=== PATIENT | male | born 1970 | race Caucasian/White ===

== ENCOUNTER 2017-01-28 21:17 | Emergency (ER) | payer BC ==
[~2017-01-28] VITALS: Ht 172.7 cm; Wt 74.3 kg
[2017-01-28 21:21] VITALS: TEMP 36.4; Ht 172.7 cm; Wt 74.3 kg
[2017-01-28] MEDS ORDERED: PROCHLORPERAZINE 5 MG/ML 2 ML VIAL IV STA (21:31)
[2017-01-28] MEDS ORDERED: KETOROLAC TROMETHAMINE 30 MG/ML VIAL IV STA (21:31)
[2017-01-28] MEDS ORDERED: SODIUM CHLORIDE 0.9% 1000ML 1,000 ML IV STA (21:31)
[2017-01-28] MEDS ORDERED: DiphenhydrAMINE HCL 50 MG/ML VIAL IV STA (21:31)
--- NOTE | 2017-01-28 21:39 | EMERGENCY ROOM VISIT NOTE ---
History Report prepared by Emani: Janet Quintanilla Under the Supervision of: Dr. Nabil Montes M.D. First contact with patient: 21:23 Chief Complaint: HEADACHE Stated Complaint: MIGRAINE SINCE MON,SORE NECK History of Present Illness The patient is a 46 year old male who presents to the Emergency Room with complaints of a constant headache beginning 5 days ago. The patient states that he woke up with this headache 5 days ago and feels like it might have come on suddenly. He reports that the pain is in the back of his head where his neck and head meet. He denies any neck pain, fever, runny nose, and sinus pressure. He notes that he has never had a headache like this before. The patient notes a history of broken back, displaced vertebrae in his neck, and 12 concussions. He states that he did hit his head on a trailer the morning before his headache began. He reports that bending over and looking down worsens his pain. The patient notes that he did not see a chiropractor or have manipulation prior to his headache but yesterday he went and did not have any relief of his symptoms. Source of History: patient Onset: 5 days ago Position: head Timing: constant Modifying Factors (Worsening): other (bending over) Modifying Factors (Relieving): other (none) Associated Symptoms: No fevers, No neck pain Note: Denies runny nose and sinus pressure. Review of Systems See HPI for pertinent positives & negatives. A total of 10 systems reviewed and were otherwise negative. Past Medical & Surgical Medical Problems: (1) Concussion Family History No pertinent family history stated. Social History Smoking Status: Never Smoker Smokeless Tobacco Use: Yes Alcohol Use: occasionally Marital Status: in relationship Housing Status: lives with significant other Occupation Status: employed Current/Historical Medications No Active Prescriptions or Reported Meds Allergies Coded Allergies: Acetaminophen (Verified Adverse Reaction, Unknown, ANXIETY (TYLENOL W/COD ), 01/28/17) Codeine (Verified Adverse Reaction, Unknown, ANXIETY, 01/28/17) Physical Exam Vital Signs Date Time Temp Pulse Resp B/P (MAP) Pulse Ox O2 Delivery O2 Flow Rate FiO2 01/28/17 23:06 76 18 135/84 98 Room Air 01/28/17 21:21 36.4 75 18 142/91 96 Room Air Physical Exam GENERAL: Patient is a healthy-appearing well-nourished [] HEAD: Normocephalic atraumatic EYES: Ocular movements intact pupils equal and react to light OROPHARYNX mucous membranes are moist no exudates present no erythema or edema present NECK: Supple no nuchal rigidity CHEST: Good equal expansion LUNGS: Clear and equal to auscultation CARDIAC: Normal S1 and S2 ABDOMEN: Soft nontender no guarding BACK: No CVA tenderness EXTREMITIES: No pain upon palpation normal muscle strength in all groups no clubbing cyanosis or edema NEURO: Patient is following commands and answering questions appropriately. Alert and oriented x3 Cranial Nerves 2-12 grossly intact, no evidence of meningitis or encephalitis on exam Medical Decision & Procedures ER Provider Diagnostic Interpretation: CT results as stated below per my review and radiologist interpretation: CT ANGIOGRAM OF THE BRAIN COMBO; CT ANGIOGRAM OF THE NECK FINDINGS: Brain parenchyma: The brain parenchyma is normal in appearance. There is no hemorrhage, mass effect, or evidence of acute territorial ischemia by CT criteria. There is no evidence of enhancing mass lesion on the angiogram phase images. The ventricles, sulci, and cisterns are normal in configuration. Megacisterna magna is incidentally noted. Yuan-white matter differentiation is preserved. No extra-axial fluid collection is seen. Thoracic aorta: Visualized portions of the thoracic aorta are normal in caliber. The aortic arch demonstrates standard 3-vessel anatomy. Right carotid arterial system: The right common carotid artery is widely patent, as are the right internal and external carotid arteries. Left carotid arterial system: The left common carotid artery is widely patent, as are the left internal and external carotid arteries. Vertebral arteries: Widely patent bilaterally and codominant. Subclavian arteries: Widely patent bilaterally. Intracranial vasculature: A left posterior communicating artery is identified. The internal carotid arteries are patent at the skull base, as are the anterior and middle cerebral arteries bilaterally. The vertebrobasilar system and posterior cerebral arteries are widely patent. The left vertebral artery is dominant at the skull base. There is no aneurysm, high-grade stenosis, or focal vessel cut off seen throughout the intracranial circulation. Jugular veins: Widely patent bilaterally. Dural sinuses: Patent. Lung apices: Partially visualized upper lobe lung parenchyma appears clear. Soft tissues: The visualized pharyngeal soft tissues are normal in appearance noting angiographic phase technique. The oropharyngeal airway appears widely patent. The salivary and thyroid glands are normal in appearance. No cervical lymphadenopathy is seen. Skeletal structures: The calvarium appears intact. The cervical spine is within normal limits. Sinuses and mastoids: Minimal secretions are seen within the right sphenoid sinus. Trace mucosal thickening is also seen within the maxillary antra. The remaining paranasal sinuses are clear. The mastoid air cells are well pneumatized. IMPRESSION: 1. No acute intracranial abnormality. 2. Unremarkable CT angiogram of the brain. 3. Unremarkable CT angiogram of the neck. Electronically signed by: Darian Law M.D. 01/28/2017 10:33 PM Dictated Date/Time: 01/28/2017 10:26 PM Laboratory Results 01/28/17 21:40 Red Blood Count 4.82, Mean Corpuscular Volume 89.2, Mean Corpuscular Hemoglobin 32.0, Mean Corpuscular Hemoglobin Concent 35.8, Mean Platelet Volume 11.5, Neutrophils (%) (Auto) 45.8, Lymphocytes (%) (Auto) 37.5, Monocytes (%) (Auto) 10.3, Eosinophils (%) (Auto) 6.0, Basophils (%) (Auto) 0.2, Neutrophils # (Auto ) 2.46, Lymphocytes # (Auto) 2.01, Monocytes # (Auto) 0.55, Eosinophils # (Auto ) 0.32, Basophils # (Auto) 0.01 01/28/17 21:40 Test 01/28/17 21:40 01/28/17 21:50 White Blood Count 5.36 K/uL (4.8-10.8) Red Blood Count 4.82 M/uL (4.7-6.1) Hemoglobin 15.4 g/dL (14.0-18.0) Hematocrit 43.0 % (42-52) Mean Corpuscular Volume 89.2 fL (80-100) Mean Corpuscular Hemoglobin 32.0 pg (25-34) Mean Corpuscular Hemoglobin Concent 35.8 g/dl (32-36) Platelet Count 172 K/uL (130-400) Mean Platelet Volume 11.5 fL (7.4-10.4) Neutrophils (%) (Auto) 45.8 % Lymphocytes (%) (Auto) 37.5 % Monocytes (%) (Auto) 10.3 % Eosinophils (%) (Auto) 6.0 % Basophils (%) (Auto) 0.2 % Neutrophils # (Auto) 2.46 K/uL (1.4-6.5) Lymphocytes # (Auto) 2.01 K/uL (1.2-3.4) Monocytes # (Auto) 0.55 K/uL (0.11-0.59) Eosinophils # (Auto) 0.32 K/uL (0-0.5) Basophils # (Auto) 0.01 K/uL (0-0.2) RDW Standard Deviation 40.9 fL (36.4-46.3) RDW Coefficient of Variation 12.7 % (11.5-14.5) Immature Granulocyte % (Auto) 0.2 % Immature Granulocyte # (Auto) 0.01 K/uL (0.00-0.02) Est Creatinine Clear Calc Drug Dose 60.2 ml/min Estimated GFR () 64.2 Estimated GFR (Non- 55.4 BUN/Creatinine Ratio 10.1 (10-20) Calcium Level 9.1 mg/dl (8.5-10.1) Total Bilirubin 0.4 mg/dl (0.2-1) Direct Bilirubin < 0.1 mg/dl (0-0.2) Aspartate Amino Transf (AST/SGOT) 19 U/L (15-37) Alanine Aminotransferase (ALT/SGPT) 45 U/L (12-78) Alkaline Phosphatase 83 U/L (45-117) Total Protein 7.0 gm/dl (6.4-8.2) Albumin 3.6 gm/dl (3.4-5.0) Lipase 194 U/L (73-393) Lyme Disease IgG Antibody NEG (NEG) Lyme Disease IgM Antibody NEG (NEG) Bedside Hemoglobin 15.0 g/dl (14.0-18.0) Bedside Hematocrit 44 % (42-52) Bedside Sodium 142 mEq/L (135-144) Bedside Potassium 3.9 mEq/L (3.3-5.0) Bedside Chloride 105 mEq/L (101-112) Bedside Total CO2 26 mEq/l (24-31) Anion Gap 17.0 mmol/L (16-25) Bedside Blood Urea Nitrogen 16 mg/dl (7-18) Bedside Creatinine 1.4 mg/dl (0.6-1.3) Bedside Glucose (other) 106 mg/dl (70-99) Bedside Ionized Calcium (Jeevan) 1.24 mmol/l (1.12-1.32) Labs reviewed by ED physician. Medications Administered Medications (Trade) Dose Ordered Sig/Casimiro Route Start Time Stop Time Status Last Admin Dose Admin Ketorolac Tromethamine (Toradol Inj) 30 mg NOW STAT IV 01/28/17 21:31 01/28/17 21:34 DC 01/28/17 21:49 30 MG Prochlorperazine Edisylate (Compazine Inj) 10 mg NOW STAT IV 01/28/17 21:31 01/28/17 21:34 DC 01/28/17 21:49 10 MG Diphenhydramine HCl (Benadryl Inj) 50 mg NOW STAT IV 01/28/17 21:31 01/28/17 21:34 DC 01/28/17 21:49 50 MG Sodium Chloride 1,000 ml @ 999 mls/hr Q1H1M STAT IV 01/28/17 21:31 01/28/17 22:31 DC 01/28/17 21:31 999 MLS/HR Dexamethasone Sodium Phosphate (Decadron Inj) 10 mg NOW ONCE IV 01/28/17 23:00 01/28/17 23:01 DC 01/28/17 23:05 10 MG ED Course 3: Past medical records reviewed. The patient was evaluated in room A3. A complete history and physical examination was performed. 2131: Sodium Chloride 1000 ml @ 999 mls/hr IV, Benadryl Inj 50mg IV, Compazine Inj 10mg IV, Toradol Inj 30mg IV. 2300: Decadron Inj 10mg IV. 2312: Upon reexamination the patient is doing well. I discussed results and treatment plan with the patient. He verbalizes agreement and understanding. The patient is ready for discharge. Medical Decision Differential diagnosis: Etiologies such as migraine headache, meningitis, sinusitis, CO exposure, ICH, SAH, infection, tumor, headache, sinus thrombosis, arterial dissection, as well as others were entertained. Medication Reconciliation: I attest that I have personally reviewed the patient' s current medication list Blood Pressure Screening: Patient was found to have an elevated blood pressure and was referred to their primary care doctor for recheck and further treatment This is a 46-year-old male who presents emergency department complaining of severe headache. The patient has no evidence of meningitis encephalitis on examination and because the patient has never had any imaging of his head performed before and due to the fact that the patient's pain started suddenly he was sent for CTA the head and neck. In addition the patient also had chiropractic work done to his neck. CTA does not show any evidence of dissection or aneurysm. An IV was established, patient given normal saline bolus, Toradol, Compazine, Benadryl. Repeat examination revealed improvement patient's symptoms. I do believe that the patient can be safely discharged home for follow-up with neurology. I did stress to the patient the need to return to the emergency department he develops severe fevers and neck pain. Patient and are in agreement with treatment plan. Impression Primary Impression: Headache Scribe Attestation The scribe's documentation has been prepared under my direction and personally reviewed by me in its entirety. I confirm that the note above accurately reflects all work, treatment, procedures, and medical decision making performed by me. Departure Information Dispostion Home / Self-Care Prescriptions No Active Prescriptions or Reported Meds Referrals No Doctor, Assigned (PCP) Forms HOME CARE DOCUMENTATION FORM, IMPORTANT VISIT INFORMATION Patient Instructions ED Dehydration, Headache Pain, Hypertension Dc, My [facility] Additional Instructions You were found to have an elevated blood pressure today (>120 sytolic or >90 diastolic). Per medicare guidelines, you need to follow up with this blood pressure screening with your Primary Care Physician (PCP). For a new PCP call [phone]. Increase fluids next 48 hours Follow up with [address] Joya's office You have been examined and treated today on an emergency basis only. This is not a substitute for, or an effort to provide, complete comprehensive medical care. It is impossible to recognize and treat all injuries or illnesses in a single emergency department visit. It is therefore important that you follow up closely with your PCP. Call as soon as possible for an appointment. Thank you for your time and consideration. I look forward to speaking with you again soon. Please don't hesitate to call us if you have any questions. Problem Qualifiers Primary Impression: Headache Headache type: unspecified Headache chronicity pattern: unspecified pattern Intractability: not intractable Qualified Codes: R51 - Headache
[2017-01-28] MEDS ORDERED: OPTIRAY 320 IV PRN (21:45)
[2017-01-28 22:01] LABS: BASO % 0.2 %; BASO ABS # 0.01 K/uL (0-0.2); COMPLETE YES; IG% 0.2 %; LYMPH % 37.5 %; LYMPH ABS # 2.01 K/uL (1.2-3.4); MEAN CELL VOLUME 89.2 fL (80-100); MEAN CORPUSCULAR HGB CONC 35.8 g/dl (32-36); MEAN PLATELET VOLUME 11.5 fL (7.4-10.4); MONO % 10.3 %; NEUT % 45.8 %; PLATELET COUNT 172 K/uL (130-400); RED BLOOD COUNT 4.82 M/uL (4.7-6.1); WHITE BLOOD COUNT 5.36 K/uL (4.8-10.8)
[2017-01-28 22:04] LABS: ISTAT CREATININE 1.4 mg/dl (0.6-1.3); ISTAT IONIZED CALCIUM 1.24 mmol/l (1.12-1.32)
[2017-01-28 22:20] LABS: ALT/SGPT 45 U/L (12-78); BLOOD UREA NITROGEN 15 mg/dl (7-18); BUN/CREATININE RATIO 10.1 (10-20); CALCIUM 9.1 mg/dl (8.5-10.1); CARBON DIOXIDE 28 mmol/L (21-32); CHLORIDE 110 mmol/L (98-107); GLUCOSE 104 mg/dl (70-99); SODIUM 144 mmol/L (136-145)
[2017-01-28 22:23] LABS: ALKALINE PHOSPHATASE 83 U/L (45-117); AST/SGOT 19 U/L (15-37)
--- NOTE | 2017-01-28 22:34 | DIAGNOSTIC IMAGING REPORT ---
CT ANGIOGRAM OF THE BRAIN COMBO; CT ANGIOGRAM OF THE NECK CLINICAL HISTORY: Headache. Neck pain. COMPARISON STUDY: No priors. TECHNIQUE: Unenhanced axial CT scan of the brain is performed. Subsequently, following the IV administration of 116 of Optiray 320, CT angiogram of the head and neck was performed from the aortic arch to the vertex. Images are reviewed in the axial, sagittal, and coronal planes. 3-D MIPS images are created and assessed. IV contrast was administered without complication. All measurements were calculated based on NASCET criteria. CT DOSE: 1008.37 mGy.cm FINDINGS: Brain parenchyma: The brain parenchyma is normal in appearance. There is no hemorrhage, mass effect, or evidence of acute territorial ischemia by CT criteria. There is no evidence of enhancing mass lesion on the angiogram phase images. The ventricles, sulci, and cisterns are normal in configuration. Megacisterna magna is incidentally noted. Yuan-white matter differentiation is preserved. No extra-axial fluid collection is seen. Thoracic aorta: Visualized portions of the thoracic aorta are normal in caliber. The aortic arch demonstrates standard 3-vessel anatomy. Right carotid arterial system: The right common carotid artery is widely patent, as are the right internal and external carotid arteries. Left carotid arterial system: The left common carotid artery is widely patent, as are the left internal and external carotid arteries. Vertebral arteries: Widely patent bilaterally and codominant. Subclavian arteries: Widely patent bilaterally. Intracranial vasculature: A left posterior communicating artery is identified. The internal carotid arteries are patent at the skull base, as are the anterior and middle cerebral arteries bilaterally. The vertebrobasilar system and posterior cerebral arteries are widely patent. The left vertebral artery is dominant at the skull base. There is no aneurysm, high-grade stenosis, or focal vessel cut off seen throughout the intracranial circulation. Jugular veins: Widely patent bilaterally. Dural sinuses: Patent. Lung apices: Partially visualized upper lobe lung parenchyma appears clear. Soft tissues: The visualized pharyngeal soft tissues are normal in appearance noting angiographic phase technique. The oropharyngeal airway appears widely patent. The salivary and thyroid glands are normal in appearance. No cervical lymphadenopathy is seen. Skeletal structures: The calvarium appears intact. The cervical spine is within normal limits. Sinuses and mastoids: Minimal secretions are seen within the right sphenoid sinus. Trace mucosal thickening is also seen within the maxillary antra. The remaining paranasal sinuses are clear. The mastoid air cells are well pneumatized. IMPRESSION: 1. No acute intracranial abnormality. 2. Unremarkable CT angiogram of the brain. 3. Unremarkable CT angiogram of the neck. Electronically signed by: Darian Law M.D. 01/28/2017 10:33 PM Dictated Date/Time: 01/28/2017 10:26 PM
[2017-01-28 22:55] LABS: LYME DISEASE AB IGG NEG (NEG); LYME DISEASE AB IGM NEG (NEG)
[2017-01-28] MEDS ORDERED: DEXAMETHASONE SOD INJ 10 MG/ML VIAL IV ONE (23:00)
[2017-01-28 23:06] VITALS: BP 135/84; PULSE 76; O2SAT 98
== END 2017-01-28 23:11 | disposition home or self-care (01) ==
LOC: C.EDB 21:19 → C.EDA 23:11
DX: R51 Headache (principal)